=== PATIENT | male | born 1980 | race Caucasian/White ===

== ENCOUNTER 2021-04-14 11:10 | Emergency (ER) | payer MEDICAID, SELFPAY ==
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
[2021-04-14 11:20] VITALS: BP 131/92; PULSE 58; RESP 14; TEMP 36.7; O2SAT 100; BMI 24.4
[2021-04-14 11:44] LABS: Basophils % 0.4 %; Eosinophils # 0.1 10^3/uL (0.0-0.8); Eosinophils % 0.6 %; Hematocrit 50.8 % (42.0-52.0); Hemoglobin 16.9 g/dL (11.7-16.6); Lymphocytes # 1.9 10^3/uL (0.8-4.8); Mean Corpuscular HGB Conc 33.3 g/dL (30.0-36.0); Mean Corpuscular Hemoglobin 29.2 pg (28.0-34.0); Mean Corpuscular Volume 87.7 fl (80-94); Mean Platelet Volume 9.1 fL (7.4-10.4); Neutrophils # 7.68 10^3/uL (1.8-7.7); Neutrophils % 71.4 %; Nucleated Red Blood Cells % 0 %; Platelet Count 302 10^3/cmm (130-400); Red Blood Count 5.79 10^6/uL (4.1-5.3); Red Cell Distribution Width 13.2 % (12.1-15.1); White Blood Count 10.8 10^3/uL (4.0-10.0)
[2021-04-14 11:57] LABS: Alanine Aminotransferase 79 U/L (0-41); Albumin Level 4.1 g/dL (3.5-5.2); Alkaline Phosphatase 58 IU/L (40-130); Anion Gap 19.1 (5-19); Aspartate Amino Transferase 64 U/L (0-40); Blood Urea Nitrogen 7 mg/dL (6-20); Calcium 8.5 mg/dL (8.5-10.5); Carbon Dioxide 23 mmol/L (22-29); Chloride 99 mmol/L (98-107); Globulin 3.8 g/dL (1.3-4.6); Glomerular Filtration Rate 183.2 mL/min (90-130); Glucose 88 mg/dL (65-115); Osmolality Calculated 281 mOsm/kg (285-295); Potassium 4.1 mmol/L (3.5-5.1); Sodium 137 mmol/L (136-145); Total Bilirubin 0.7 mg/dL (0.15-1.2); Total Protein 7.9 g/dL (6.6-8.7)
--- NOTE | 2021-04-14 11:59 | CTR_ITS ---
PROCEDURE INFORMATION: Exam: CT Cervical Spine Without Contrast Exam date and time: 04/14/2021 11:59 AM Age: 40 years old Clinical indication: Condition or disease; Other: Recent basilar skull FX; Other: Altered mental status; Additional info: AMS, recent basilar skull FX TECHNIQUE: Imaging protocol: Computed tomography images of the cervical spine without contrast. Radiation optimization: All CT scans at this facility use at least one of these dose optimization techniques: automated exposure control; mA and/or kV adjustment per patient size (includes targeted exams where dose is matched to clinical indication); or iterative reconstruction. COMPARISON: CT head wo con* [id number] 04/14/2021 12:12 PM RADIATION DOSE METRICS: Total DLP (mGy-cm): 945.21 FINDINGS: Bones/joints: No acute fracture. Normal alignment. Discs/Spinal canal/Neural foramina: Chronic degenerative changes are present predominantly at the C6-C7 level with osteophytes on the vertebral bodies and disc space narrowing. There is mild spinal stenosis and neural foraminal narrowing. No severe spinal canal stenosis. No significant neural foraminal narrowing. Lungs: Lung apices are normal. Soft tissues: Unremarkable. CT/CT cervical spin wo con* [id number] IMPRESSION: No acute abnormality is seen in the cervical spine.
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
--- NOTE | 2021-04-14 13:02 | PC.NURSE ---
patient brought back from ct. patient sleeping comfortably in bed at his time. patient will open eyes to painful stimuli and mumble 1-2 words. patient in no obvious distress. patient on cardiac nurse specialist. Guard at bedside.
[2021-04-14 14:42] VITALS: BP 131/87; PULSE 60; RESP 16; TEMP 36.7; O2SAT 100
== END 2021-04-14 14:45 ==
PROVIDERS: Emergency Provider Family Medicine; PCP Orthopaedic Surgery Hand Surgery
DX: F91.8 Other conduct disorders (principal); R15.1 Fecal smearing; Z87.828 Personal history of other (healed) physical injury and trauma
CPT/HCPCS: 70450; 72125; 80053; 85025; 99283

== ENCOUNTER 2021-04-15 13:22 | Emergency (ER) | payer MEDICAID, SELFPAY ==
[2021-04-15] VITALS (11 sets, daily range): BP systolic 112–153; BP diastolic 64–109; PULSE 61–83; RESP 12–18; TEMP 36.6; O2SAT 99–100; BMI 25.0
--- NOTE | 2021-04-15 13:59 | CT_ITS ---
WS: [id number] CT HEAD TECHNIQUE: Noncontrast CT of the head obtained from the skullbase to the vertex. CLINICAL INFORMATION: altered mental status COMPARISON: None. DLP: 1813.[address] scans at [facility] use at least one of these dose optimization techniques: automated e xposure control; mA and/or kV adjustment per patient size (includes targeted exams where dose is matc hed to clinical indication); or iterative reconstruction. FINDINGS: Again seen are the multiple bilateral tiny frontal and parietal white matter punctate foci of suspect ed petechial hemorrhage. Suggestion of a tiny amount of blood products along the anterior midline fal x unchanged. Tiny suspected foci of petechial hemorrhage are stable. No hydrocephalus. No intraventri cular hemorrhage. Mild mucosal thickening ethmoid air cells and right sphenoid sinus. Fluid and mucosal thickening in t he left frontal sinus. Mastoid air cells are well aerated. Previously described lucencies through the skull base are partially visualized and unchanged. IMPRESSION: 1. Stable small punctate foci of petechial hemorrhage involving the subcortical and deep white matte r in the frontal and parietal lobes unchanged. No significant progression. 2. Tiny amount of suspected subdural blood pool products along the anterior and mid falx is unchange d. 3. Previously described nondisplaced skull base fractures partially visualized and unchanged. Notified Christophe Rosado MD at 04/15/2021 3:39 PM.
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
[2021-04-15 14:08] LABS: Glucose Point of Care 143 mg/dL (70-110)
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
[2021-04-15 14:26] LABS: Basophils # 0.1 10^3/uL (0.0-0.1); Basophils % 0.6 %; Eosinophils # 0.1 10^3/uL (0.0-0.8); Eosinophils % 1.1 %; Hematocrit 48.3 % (42.0-52.0); Hemoglobin 16.5 g/dL (11.7-16.6); Lymphocytes % 18.4 %; Mean Corpuscular HGB Conc 34.2 g/dL (30.0-36.0); Mean Corpuscular Hemoglobin 29.3 pg (28.0-34.0); Mean Corpuscular Volume 85.6 fl (80-94); Mean Platelet Volume 8.8 fL (7.4-10.4); Monocytes # 1.1 10^3/uL (0.2-0.9); Monocytes % 9.8 %; Neutrophils # 7.57 10^3/uL (1.8-7.7); Neutrophils % 69.5 %; Nucleated Red Blood Cells % 0 %; Platelet Count 333 10^3/cmm (130-400); Red Blood Count 5.64 10^6/uL (4.1-5.3); Red Cell Distribution Width 13.2 % (12.1-15.1); White Blood Count 10.9 10^3/uL (4.0-10.0)
[2021-04-15 14:41] LABS: Alanine Aminotransferase 74 U/L (0-41); Albumin Level 3.9 g/dL (3.5-5.2); Alkaline Phosphatase 56 IU/L (40-130); Anion Gap 13.5 (5-19); Aspartate Amino Transferase 59 U/L (0-40); Blood Urea Nitrogen 10 mg/dL (6-20); Calcium 8.7 mg/dL (8.5-10.5); Carbon Dioxide 29 mmol/L (22-29); Chloride 99 mmol/L (98-107); Globulin 3.9 g/dL (1.3-4.6); Glomerular Filtration Rate 148.5 mL/min (90-130); Glucose 100 mg/dL (65-115); Osmolality Calculated 285 mOsm/kg (285-295); Potassium 3.5 mmol/L (3.5-5.1); Sodium 138 mmol/L (136-145); Total Bilirubin 0.5 mg/dL (0.15-1.2); Total Protein 7.8 g/dL (6.6-8.7)
[2021-04-15 14:46] LABS: Acetaminophen < 5.0 ug/mL (10-30); Alcohol Level < 10 mg/dL (0-10); Salicylate < 0.3 mg/dL (3-10)
[2021-04-15 14:52] LABS: Bilirubin Urine 1+ (Negative); Blood Urine 2+ (Negative); Glucose Urine UA Norm (Normal); Ketones Urine 3+ (Negative); Nitrate Urine Negative (Negative); Protein Urine Neg (Negative); Urine Appearance Hazy (CLEAR); Urine Color Dark Yellow (Yellow); pH Urine 5 (5-7)
[2021-04-15 14:53] LABS: Add Urine Culture? Yes; Add Urine Microscopic? YES; Bacteria Urine TRACE /hpf; Leukocyte Esterase Urine 2+ (Negative); Urobilinogen Urine 4+ mg/dL (Negative); WBC Urine 15-25 /hpf (0-5)
[2021-04-15 14:54] LABS: Amphetamines Screen Urine Negative (Negative); Barbiturates Screen Urine Negative (Negative); Benzodiazepines Screen Urine Negative (Negative); Cocaine Screen Urine Negative (Negative); Opiate Screen Urine Positive (Negative); PCP Screen Urine Negative (Negative); THC Screen Urine Positive (Negative)
[2021-04-15 20:53] LABS: ABG PCO2 43.6 mmHg (35-45); Arterial Blood Gas Hematocrit 51.4 % (42-52); Base Excess ABG 3.7 mmol/L (-2.0-2.0); HCO3 ABG 28.7 mmol/L (22-26); PO2 ABG 52.2 mmHg (80.0-100.0)
[2021-04-15 20:55] LABS: ABG PH Result 7.43 (7.35-7.45); Blood Gas Allen Test Pos; Blood Gas Sample Site Radial, right; Blood Gas Sample Type Arterial
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
--- NOTE | 2021-04-15 23:05 | PC.NURSE ---
Patient has been redirected multiple times to keep c collar in place as he has some concerning results on his cervical imaging. Patient is non-complaint and is getting out of bed.
== END 2021-04-15 23:47 | disposition short-term general hospital (02) ==
LOC: ER 16:50 → NP 19:34 → ER 22:31
PROVIDERS: Emergency Medicine; Emergency Provider Emergency Medicine
DX: F44.7 Conversion disorder with mixed symptom presentation (principal)
CPT/HCPCS: 36416; 36600; 70450; 80053; 80306; 80307; 81001; 82803; 82962; 85025; 87086; 87491; 87591; 99285

== ENCOUNTER 2021-12-17 14:51 | Emergency (ER) | payer MEDICAID, SELFPAY ==
--- NOTE | 2021-12-17 14:57 | ECG_ITS ---
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 Measurements Intervals [place] Rate: 135 P: 46 GA: 136 QRS: -11 QRSD: 88 T: 57 QT: 299 QTc: 449 Interpretive Statements SINUS TACHYCARDIA ABNORMAL RHYTHM ECG No previous ECG available for comparison Electronically Signed On 12-18-2021 15:36:49 CDT by Dionne Juarez M.D. [id number]
[2021-12-17 14:59] VITALS: BP 126/90; PULSE 132; RESP 16; TEMP 37; O2SAT 94
[2021-12-17] MEDS: sodium chloride 0.9% 1,000 ML 999 ML IV ×2 (15:56→17:00)
--- NOTE | 2021-12-17 15:58 | W.ED.GENADLT ---
HPI - General Adult General: Chief complaint: General Medical Stated complaint: Weakness, Heat exposure Time Seen by Provider: 12/17/21 15:07 History of Present Illness: Patient is a 41-year-old male who is currently homeless presenting to the emergency room for concerns of exhaustion. Patient tells me that he has been outside and has not had any food in the last 2 days. Patient says that he recently got a job and has been working quite a bit since his release from shelter. Patient tells me that he takes medicine for his brain swelling. Patient cannot remember exactly what it is. Patient denies any focal neurological weakness currently. Patient tells me that he will be pain on Tuesday and he just needed some water and food today. Patient would also like to establish care with a primary care provider to determine what medicine he needs for his brain swelling. Patient denies nausea/vomiting, fever/chill, chest pain, shortness of breath, abdominal pain, dysuria/hematuria/polyuria, diarrhea/melena/hematochezia. Onset: 3 days ago Duration:3 days Location:home Severity:moderate Associated symptoms: Reports malaise; Deny chest pain, dyspnea, nausea, rash, palpitations or vomiting Review of Systems Const: Reports: fatigue, malaise and other (+generalized weakness); Denies: fever(s) or chills Eyes: Denies: change in vision ENMT: Denies: mouth pain Card: Denies: chest pain or palpitations Resp: Denies: dyspnea or non-productive cough GI: Denies: abdominal pain, nausea, vomiting or diarrhea : Denies: dysuria Musc: Denies: extremity pain Skin/Breast: Denies: rash or new lesions Neuro: Denies: weakness in extremities Psych: Reports: other (Normal mood) Bhargav/Lymph: Denies: easy bruising PFSH ED PFSH: Medical History No pertinent past medical history Social History Smoking and tobacco status: never smoked Alcohol intake: never Substance/Drug Use: never Physical Exam Const: COMMON NORMALS: alert HENMT: COMMON NORMALS: atraumatic HEAD & SCALP: atraumatic MOUTH: moist mucous membranes abnormal Eye: COMMON NORMALS: EOMs intact bilaterally and conjunctivae normal CONJUNCTIVA: Yes conjunctivae normal Neck/C-Spine: COMMON NORMALS: full ROM and supple Resp: COMMON NORMALS: normal respiratory effort and clear to auscultation bilaterally AUSCULTATION: clear to auscultation bilaterally Cardio: RATE: tachycardic GI: COMMON NORMALS: Soft to palpation and non-tender PALPATION: Yes Soft to palpation Extremity: COMMON NORMALS: full ROM Neuro: SENSORIUM/ORIENTATION: Yes alert MOTOR EXAM: No Abnormal motor strength present and Other motor observations present (no focal motor deficits) Psych: COMMON NORMALS: speech normal SPEECH: Yes normal speech MOOD & AFFECT: Yes euthymic mood Course Vital Signs: Vital signs: Vital Signs Temperature 98.6 F 12/17/21 14:59 Pulse Rate 103 H 12/17/21 18:44 Respiratory Rate 14 12/17/21 18:44 Blood Pressure 122/81 12/17/21 18:44 Pulse Oximetry 99 12/17/21 18:44 Oxygen Delivery Me thod 12/17/21 18:44 MDM - General Adult Medical Decision Making Patient a 41-year-old male currently homeless presenting to the emergency room for concerns of possible dehydration. Patient tells me that he has not had food in the last 2 days. Exam, patient is noted to have dry mucous membrane and mildly tachycardic to the low 120s. Patient received IVF in emergency room had a sandwich she reports feeling symptomatically improved. Patient's hemoglobin is 17.4. Lab within normal limit. CT head negative for any acute findings. Patient is concerned of the brain swelling. Patient is currently neurologically intact. Given his close follow-up with a primary care provider to further determine his concerns for brain swelling. Patient was CPK was noted to be elevated at 1349. Patient received IVF and repeat CPK improved after. Creatinine of 1.3 likely secondary to dehydration. HR improved on reassessment. Disposition: Discharge. Patient counseled regarding diagnostic impression, treatment plan. Patient given ED strict return precautions to return for continuation, worsening, or development of new symptoms. Instructed to f/u w/ PCP regarding symptoms today. Patient verbalized understanding. Lab Data : 12/17/21 15:55 12/17/21 15:[address] 12/17/21 16:41 IMPRESSION: No acute intracranial abnormality. Laboratory Results WBC 10.9 10^3/uL (4.0-10.0) H 12/17/21 15:55 RBC 5.97 10^6/uL (4.1-5.3) H 12/17/21 15:55 Hgb 17.4 g/dL (11.7-16.6) H 12/17/21 15:55 Hct 51.8 % (42.0-52.0) 12/17/21 15:55 MCV 86.8 fl (80-94) 12/17/21 15:55 MCH 29.1 pg (28.0-34.0) 12/17/21 15:55 MCHC 33.6 g/dL (30.0-36.0) 12/17/21 15:55 RDW 12.9 % (12.1-15.1) 12/17/21 15:55 Plt Count 221 10^3/cmm (130-400) 12/17/21 15:55 MPV 8.9 fL (7.4-10.4) 12/17/21 15:55 Neut % (Auto) 77.1 % 12/17/21 15:55 Lymph % (Auto) 14.6 % 12/17/21 15:55 [place] % (Auto) 7.1 % 12/17/21 15:55 Eos % (Auto) 0.2 % 12/17/21 15:55 Baso % (Auto) 0.5 % 12/17/21 15:55 Neut # (Auto) 8.43 10^3/uL (1.8-7.7) H 12/17/21 15:55 Lymph # (Auto) 1.6 10^3/uL (0.8-4.8) 12/17/21 15:55 [place] # (Auto) 0.8 10^3/uL (0.2-0.9) 12/17/21 15:55 Eos # (Auto) 0.0 10^3/uL (0.0-0.8) 12/17/21 15:55 Baso # (Auto) 0.1 10^3/uL (0.0-0.1) 12/17/21 15:55 Nucleated RBC % (auto) 0 % 12/17/21 15:55 Nucleated RBCs # 0.0 /100WBC 12/17/21 15:55 Sodium 142 mmol/L (136-145) 12/17/21 15:55 Potassium 3.8 mmol/L (3.5-5.1) 12/17/21 15:55 Chloride 102 mmol/L (98-107) 12/17/21 15:55 Carbon Dioxide 26 mmol/L (22-29) 12/17/21 15:55 Anion Gap 17.8 (5-19) 12/17/21 15:55 BUN 20 mg/dL (6-20) 12/17/21 15:55 Creatinine 1.3 mg/dL (0.7-1.2) H 12/17/21 15:55 GFR Calculation 60.5 mL/min (90-130) L 12/17/21 15:55 Glucose 101 mg/dL (65-115) 12/17/21 15:55 Calculated Osmolality 297 mOsm/kg (285-295) H 12/17/21 15:55 Calcium 9.4 mg/dL (8.5-10.5) 12/17/21 15:55 Total Bilirubin 0.9 mg/dL (0.15-1.2) 12/17/21 15:55 AST 49 U/L (0-40) H 12/17/21 15:55 ALT 32 U/L (0-41) 12/17/21 15:55 Alkaline Phosphatase 53 U/L (40-130) 12/17/21 15:55 Creatine Kinase 1117 U/L (39-308) H* 12/17/21 18:20 Total Protein 7.5 g/dL (6.6-8.7) 12/17/21 15:55 Albumin 4.6 g/dL (3.5-5.2) 12/17/21 15:55 Globulin 2.9 g/dL (1.3-4.6) 12/17/21 15:55 Lipase 17 U/L (13-60) 12/17/21 15:55 Imaging Data Other Imaging: Radiologist's impression: Close Head CT (Signed) Volodymyr Flower - 12/17/21 Launch?Image [address] [address] [address] Scan Report Signed Patient: Bernardino Langford Unit #: [id number] : 1980 Age/Sex: 41 / M ADM Date: 12/17/21 Loc: ER Room/Bed: Attending Dr: Ordering Provider/Ordering MD: Violet Tabares MD Date of Service: 12/17/21 Procedure(s): CT head wo con* [id number] Accession Number(s): [id number] Report Number: [id number] PROCEDURE INFORMATION: Exam: CT Head Without Contrast Exam date and time: 12/17/2021 5:00 PM Age: 41 years old Clinical indication: Pain; Headache not specified; Patient HX: Patient states prior shunt surgery when jaw was repaired; Additional info: Brain swelling TECHNIQUE: Imaging protocol: Computed tomography of the head without contrast. Radiation optimization: All CT scans at this facility use at least one of these dose optimization techniques: automated exposure control; mA and/or kV adjustment per patient size (includes targeted exams where dose is matched to clinical indication); or iterative reconstruction. COMPARISON: No relevant prior studies available. RADIATION DOSE METRICS: Total DLP (mGy-cm): 1268.18 FINDINGS: Brain: Normal. No hemorrhage. Unremarkable white matter. No mass effect. Cerebral ventricles: No ventriculomegaly. Paranasal sinuses: Visualized sinuses are unremarkable. No fluid levels. Mastoid air cells: Visualized mastoid air cells are well aerated. Bones/joints: Metallic plate noted at the left mandible. No acute fracture. Soft tissues: Unremarkable. CT/CT head wo con* [id number] IMPRESSION: No acute intracranial abnormality. ? Dictated By: Volodymyr Flower DO Signed By: Volodymyr Flower DO Signed Date/Time: 12/17/21 173 DD/ 1700 Discharge Plan Discharge Patient Disposition: Home Clinical Impression: Dehydration, Fatigue, Generalized weakness Condition: Stable Prescriptions: No Action Unable to Assess Discharge Orders: Discharge ED (Routine); Ordered 12/17/21 Ordered By: Violet Tabares Discharge Diet: Advance as tolerated Discharge Activity: Increase activity as tolerated Patient Instructions: Heat Exhaustion (ED) Activity Restrictions/Additional Instructions: Come back if you have any new or concerning issues. Coding Level of Care Code ED Supervisor Pigment Making for Chg Fwd Exam Comprehensive
[2021-12-17 16:02] LABS: Basophils # 0.1 10^3/uL (0.0-0.1); Basophils % 0.5 %; Eosinophils % 0.2 %; Hematocrit 51.8 % (42.0-52.0); Hemoglobin 17.4 g/dL (11.7-16.6); Lymphocytes # 1.6 10^3/uL (0.8-4.8); Lymphocytes % 14.6 %; Mean Corpuscular HGB Conc 33.6 g/dL (30.0-36.0); Mean Corpuscular Hemoglobin 29.1 pg (28.0-34.0); Mean Corpuscular Volume 86.8 fl (80-94); Mean Platelet Volume 8.9 fL (7.4-10.4); Monocytes # 0.8 10^3/uL (0.2-0.9); Monocytes % 7.1 %; Neutrophils # 8.43 10^3/uL (1.8-7.7); Neutrophils % 77.1 %; Nucleated Red Blood Cells % 0 %; Platelet Count 221 10^3/cmm (130-400); Red Blood Count 5.97 10^6/uL (4.1-5.3); Red Cell Distribution Width 12.9 % (12.1-15.1); White Blood Count 10.9 10^3/uL (4.0-10.0)
--- NOTE | 2021-12-17 16:08 | PC.PHAR ---
pt unable to tell any information about home medications other than they are for brain swelling- contacted the last health care facility pt was in contact with per patient ([facility] ), and the facility states the pt was not a resident in their facility. No phone numbers in pt contacts- pt also states he does not fill meds at a pharmacy.
[2021-12-17 16:33] LABS: Alanine Aminotransferase 32 U/L (0-41); Albumin Level 4.6 g/dL (3.5-5.2); Alkaline Phosphatase 53 U/L (40-130); Blood Urea Nitrogen 20 mg/dL (6-20); Calcium 9.4 mg/dL (8.5-10.5); Carbon Dioxide 26 mmol/L (22-29); Chloride 102 mmol/L (98-107); Globulin 2.9 g/dL (1.3-4.6); Glomerular Filtration Rate 60.5 mL/min (90-130); Glucose 101 mg/dL (65-115); Lipase 17 U/L (13-60); Osmolality Calculated 297 mOsm/kg (285-295); Sodium 142 mmol/L (136-145); Total Bilirubin 0.9 mg/dL (0.15-1.2); Total Protein 7.5 g/dL (6.6-8.7)
[2021-12-17 16:40] LABS: Anion Gap 17.8 (5-19); Aspartate Amino Transferase 49 U/L (0-40); Potassium 3.8 mmol/L (3.5-5.1)
--- NOTE | 2021-12-17 16:41 | CTR_ITS ---
PROCEDURE INFORMATION: Exam: CT Head Without Contrast Exam date and time: 12/17/2021 5:00 PM Age: 41 years old Clinical indication: Pain; Headache not specified; Patient HX: Patient states prior shunt surgery when jaw was repaired; Additional info: Brain swelling TECHNIQUE: Imaging protocol: Computed tomography of the head without contrast. Radiation optimization: All CT scans at this facility use at least one of these dose optimization techniques: automated exposure control; mA and/or kV adjustment per patient size (includes targeted exams where dose is matched to clinical indication); or iterative reconstruction. COMPARISON: No relevant prior studies available. RADIATION DOSE METRICS: Total DLP (mGy-cm): 1268.18 FINDINGS: Brain: Normal. No hemorrhage. Unremarkable white matter. No mass effect. Cerebral ventricles: No ventriculomegaly. Paranasal sinuses: Visualized sinuses are unremarkable. No fluid levels. Mastoid air cells: Visualized mastoid air cells are well aerated. Bones/joints: Metallic plate noted at the left mandible. No acute fracture. Soft tissues: Unremarkable. CT/CT head wo con* [id number] IMPRESSION: No acute intracranial abnormality.
[2021-12-17 16:42] LABS: Creatine Phosphokinase 1349 U/L (39-308)
[2021-12-17 18:44] VITALS: BP 122/81; PULSE 103; RESP 14; O2SAT 99
[2021-12-17 19:08] LABS: Creatine Phosphokinase 1117 U/L (39-308)
--- NOTE | 2021-12-18 10:41 | DCPLANNER ---
service center manager had message to speak with patient about getting established with a primary care physician. service center manager unable to speak with patient or leave a voicemail at this time.
== END 2021-12-17 19:14 | disposition home or self-care (01) ==
PROVIDERS: Emergency Provider Emergency Medicine
DX: R53.83 Other fatigue (principal); E86.0 Dehydration; R53.1 Weakness
CPT/HCPCS: 70450; 80053; 82550; 83690; 85025; 93005; 96360; 99284; J7030

== ENCOUNTER → 2023-06-14 13:35 | Outpatient (BNVA) | payer MEDICAID, SELFPAY | PROVIDERS: PCP Nurse Practitioner; Visit Provider Nurse Practitioner | DX: R53.83 Other fatigue (principal) | CPT/HCPCS: 82306 ==

== ENCOUNTER → 2023-06-16 11:33 | Outpatient (BNVA) | payer MEDICAID, SELFPAY | PROVIDERS: PCP Nurse Practitioner; Visit Provider Nurse Practitioner | DX: R53.83 Other fatigue (principal) | CPT/HCPCS: 80053; 84443; 85025 ==